=== PATIENT | female | born 1980 | race Caucasian/White ===

== ENCOUNTER 2022-10-01 18:13 | Emergency (ER) | payer MEDICAID ==
[~2022-10-01] VITALS: Ht 175.3 cm; Wt 50.8 kg
[2022-10-01] MEDS ORDERED: METOPROLOL (18:38)
[2022-10-01] MEDS ORDERED: MAGNESIUM SULFATE/D5W 100 ML IV SCH (20:00)
[2022-10-01] MEDS ORDERED: TRAM50TA2 PO (20:16)
[2022-10-01] MEDS ORDERED: HYDROCODONE/APAP 5-325MG TABLET ONE (20:21)
[2022-10-01 20:25] VITALS: BP 139/77; O2SAT 96
[2022-10-01] MEDS ORDERED: HYDROCODONE/APAP 5-325MG TABLET PO ONE (20:30)
== END 2022-10-01 20:26 | disposition home or self-care (01) ==
LOC: ER 18:18
DX: S90.111A Contusion of right great toe without damage to nail, initial encounter (principal); Z88.8 Allergy status to other drugs, medicaments and biological substances; Z79.899 Other long term (current) drug therapy; W22.8XXA Striking against or struck by other objects, initial encounter; Y93.89 Activity, other specified; Y92.89 Other specified places as the place of occurrence of the external cause; Y99.8 Other external cause status
CPT/HCPCS: 73630; A4663

== ENCOUNTER 2023-09-26 09:45 | Inpatient (IN) | payer MEDICAID, OTHER ==
[~2023-09-26] VITALS: Ht 170.2 cm; Wt 45.4 kg
[~2023-09-26 09:45] MED LIST: METOPROLOL; TRAM50TA2 PO
[2023-09-26 10:31] LABS: BASOPHILS % (AUTO) 0.4 % (0.0-2.0); EOSINOPHILS % (AUTO) 0.1 % (0.0-7.0); HEMOGLOBIN 12.7 g/dL (10.9-14.3); LYMPHOCYTES # (AUTO) 0.7 K/uL (0.8-4.8); LYMPHOCYTES % (AUTO) 27.1 % (20.5-51.5); MEAN CORPUSCULAR HEMOGLOBIN 32.1 uug (24.7-32.8); MEAN CORPUSCULAR HGB CONC 33 g/dL (32.3-35.6); MEAN CORPUSCULAR VOLUME 96.3 fL (75.5-95.3); MONOCYTES # (AUTO) 0.2 K/uL (0.1-1.30); MONOCYTES % (AUTO) 6.8 % (0.0-11.0); NEUTROPHILS # (AUTO) 1.8 K/uL (1.8-8.9); NEUTROPHILS % (AUTO) 65.6 % (38.5-71.5); PLATELET COUNT (AUTO) 104 K/uL (179-408); RED BLOOD CELL COUNT(AUTO) 3.95 MIL/uL (3.63-4.92); RED CELL DISTRIBUTION WIDTH 14.5 % (12.3-17.7); WHITE BLOOD COUNT (AUTO) 2.7 K/uL (3.8-11.8)
[2023-09-26 10:38] LABS: CALCIUM 8.3 mg/dL (8.5-10.1); CARBON DIOXIDE 28 mmol/L (21-32); CHLORIDE 91 mmol/L (98-107); CREATININE 0.5 mg/dL (0.6-1.3); GLUCOSE 112 mg/dL (74-106); POTASSIUM 3.3 mmol/L (3.5-5.1); SODIUM SERUM 132 mmol/L (136-145); UREA NITROGEN, BLOOD 5 mg/dL (7-18)
[2023-09-26 10:44] LABS: ALANINE AMINOTRANSFERASE 77 U/L (14-59); ALBUMIN 3.9 g/dL (3.4-5.0); ALKALINE PHOSPHATASE 116 U/L (50-136); ASPARTATE AMINOTRANSFERASE 155 U/L (15-37); BILIRUBIN,DIRECT 0.2 mg/dL (0.0-0.2); BILIRUBIN,TOTAL 0.6 mg/dL (0.2-1.0); LIPASE 304 U/L (16-77); TOTAL PROTEIN, SERUM 7.9 g/dL (6.4-8.2)
[2023-09-26] MEDS ORDERED: THIAMINE HCL 100 MG TABLET ONE (10:48)
[2023-09-26] MEDS ORDERED: CHLORDIAZEPOXIDE HCL 25 MG CAPSULE ONE (10:48)
[2023-09-26] MEDS ORDERED: HYDROMORPHONE 1 MG/1 ML DISP.SYRIN ONE (10:48)
[2023-09-26] MEDS ORDERED: ONDANSETRON 4 MG/2 ML VIAL ONE (10:48)
[2023-09-26 10:55] LABS: AMMONIA 17 umol/L (11-32)
[2023-09-26] MEDS: THIAMINE HCL 100 MG TABLET PO ONE (11:02)
[2023-09-26] MEDS: CHLORDIAZEPOXIDE HCL 25 MG CAPSULE PO ONE (11:02)
[2023-09-26] MEDS: ONDANSETRON 4 MG/2 ML VIAL IV ONE (11:03)
[2023-09-26] MEDS: IV NORMAL SALINE 1000 ML BAG IV ONE (11:03)
[2023-09-26] MEDS: HYDROMORPHONE 1 MG/1 ML DISP.SYRIN IV ONE (11:04)
[2023-09-26] MEDS ORDERED: POTASSIUM BICARBONATE/CIT AC 25 MEQ TABLET.EFF ONE (11:06)
[2023-09-26] MEDS: POTASSIUM BICARBONATE/CIT AC 25 MEQ TABLET.EFF PO ONE (11:07)
[2023-09-26 11:23] LABS: MAGNESIUM 1.5 mg/dL (1.8-2.4)
[2023-09-26 12:41] LABS: *BILIRUBIN,URIN NEGATIVE (NEGATIVE); *BLOOD, URINE NEGATIVE (NEGATIVE); *CLARITY,URINE CLEAR (CLEAR); *COLOR,URINE YELLOW (YELLOW); *KETONES,URINE 1+ (NEGATIVE); *PROTEIN,URINE NEGATIVE (NEGATIVE); *UROBILINOGEN,URINE 0.2 E.U./dl (NORMAL); LEUKOCYTE ESTERASE ,URINE NEGATIVE (NEGATIVE); NITRITE, URINE NEGATIVE (NEGATIVE); PH,URINE 6.5 (5.0-8.0); UGLUCOSE NEGATIVE (NEGATIVE)
[2023-09-26 12:47] LABS: *URINE HCG, QUAL NEGATIVE (NEGATIVE)
[2023-09-26] MEDS ORDERED: CHOLECALCIFEROL 1,000 UNIT TABLET ONE (12:51)
[2023-09-26] MEDS ORDERED: MAGNESIUM SULFATE/D5W 300 ML ONE (12:52)
[2023-09-26] MEDS: MAGNESIUM SULFATE/D5W 100 ML IV SCH (12:54)
[2023-09-26] MEDS: CHOLECALCIFEROL 1,000 UNIT TABLET PO SCH (12:54)
[2023-09-26 12:58] LABS: BACTERIA,URINE NONE SEEN /HPF (NONE SEEN); RBC,URINE NONE SEEN /HPF (0-3); SQUAMOUS EPITHELIAL CELL,UR FEW /HPF (NONE SEEN); WBC,URINE 0-3 /HPF (0-3)
[2023-09-26] MEDS ORDERED: REMEDY ESSENTIAL ZINC PASTE 113 GM TP PRN (14:00)
[2023-09-26] MEDS ORDERED: LORAZEPAM 2 MG/1 ML VIAL IV PRN (14:00)
[2023-09-26] MEDS ORDERED: MAGNESIUM HYDROXIDE 30 ML LIQUID UDC PO PRN (14:00)
[2023-09-26] MEDS: IV NS 1000 ML 1,000 ML IV PRN (15:13)
[2023-09-26] MEDS: THIAMINE HCL INJ 100 MG in IV DEXTROSE 5% 50 ML IV SCH (15:13)
[2023-09-26 16:16] LABS: CALCIUM 7.6 mg/dL (8.5-10.1); CARBON DIOXIDE 28 mmol/L (21-32); CHLORIDE 91 mmol/L (98-107); CREATININE 0.4 mg/dL (0.6-1.3); GLUCOSE 125 mg/dL (74-106); SODIUM SERUM 132 mmol/L (136-145); UREA NITROGEN, BLOOD 3 mg/dL (7-18)
[2023-09-26] MEDS: CHLORDIAZEPOXIDE HCL 25 MG CAPSULE PO SCH (16:19)
[2023-09-26] MEDS: HYDROMORPHONE 1 MG/1 ML DISP.SYRIN IV PRN (17:36)
[2023-09-26 20:32] VITALS: BP 171/109; TEMP 97.8; O2SAT 99
[2023-09-26] MEDS: hydrALAZINE HCL 20 MG/1 ML VIAL IV PRN (21:51)
[2023-09-26] MEDS: ACETAMINOPHEN 325 MG TABLET PO PRN (21:57)
[2023-09-26] MEDS: ONDANSETRON 4 MG/2 ML VIAL IV PRN (22:57)
[2023-09-26 23:36] VITALS: BP 156/96; TEMP 97.8; O2SAT 99
[2023-09-27] MEDS: ZOLPIDEM 5 MG TABLET PO PRN (00:23)
[2023-09-27 04:00] VITALS: BP 156/103; TEMP 98.1; O2SAT 99
[2023-09-27 07:17] LABS: BASOPHILS % (AUTO) 0.6 % (0.0-2.0); EOSINOPHILS % (AUTO) 0.1 % (0.0-7.0); HEMOGLOBIN 11.4 g/dL (10.9-14.3); LYMPHOCYTES # (AUTO) 0.4 K/uL (0.8-4.8); LYMPHOCYTES % (AUTO) 16.5 % (20.5-51.5); MEAN CORPUSCULAR HEMOGLOBIN 32.4 uug (24.7-32.8); MEAN CORPUSCULAR HGB CONC 34 g/dL (32.3-35.6); MEAN CORPUSCULAR VOLUME 96.6 fL (75.5-95.3); MONOCYTES # (AUTO) 0.3 K/uL (0.1-1.30); MONOCYTES % (AUTO) 10.4 % (0.0-11.0); NEUTROPHILS # (AUTO) 1.8 K/uL (1.8-8.9); NEUTROPHILS % (AUTO) 72.4 % (38.5-71.5); PLATELET COUNT (AUTO) 69 K/uL (179-408); RED BLOOD CELL COUNT(AUTO) 3.52 MIL/uL (3.63-4.92); RED CELL DISTRIBUTION WIDTH 14.3 % (12.3-17.7); WHITE BLOOD COUNT (AUTO) 2.6 K/uL (3.8-11.8)
[2023-09-27 07:23] LABS: DIFFERENTIAL COMMENT 1
[2023-09-27 07:27] LABS: ALANINE AMINOTRANSFERASE 65 U/L (14-59); ALBUMIN 3.7 g/dL (3.4-5.0); ALKALINE PHOSPHATASE 109 U/L (50-136); ASPARTATE AMINOTRANSFERASE 108 U/L (15-37); BILIRUBIN,TOTAL 1.1 mg/dL (0.2-1.0); CALCIUM 7.8 mg/dL (8.5-10.1); CARBON DIOXIDE 24 mmol/L (21-32); CHLORIDE 90 mmol/L (98-107); CREATININE 0.4 mg/dL (0.6-1.3); GLUCOSE 117 mg/dL (74-106); MAGNESIUM 1.6 mg/dL (1.8-2.4); PHOSPHOROUS 2.9 mg/dL (2.5-4.9); POTASSIUM 2.9 mmol/L (3.5-5.1); SODIUM SERUM 129 mmol/L (136-145); TOTAL PROTEIN, SERUM 7.4 g/dL (6.4-8.2); UREA NITROGEN, BLOOD 4 mg/dL (7-18)
[2023-09-27 07:36] VITALS: BP 150/95; TEMP 98.6; O2SAT 96
[2023-09-27] MEDS: PANTOPRAZOLE SODIUM 40 MG VIAL IV SCH (09:18)
[2023-09-27 10:33] LABS: LYMPHOCYTES % (MANUAL) 15 % (20-40); MONOCYTES % (MANUAL) 8 % (2-10); NEUTROPHILS % (MANUAL) 77 % (42-75); PLATELET ESTIMATE DECREASED
[2023-09-27 10:34] LABS: ANISOCYTOSIS 1+; STOMATOCYTES 1+
[2023-09-27 11:56] VITALS: BP 135/91; TEMP 98.2; O2SAT 99
[2023-09-27] MEDS: MAGNESIUM SULFATE/D5W 100 ML IV SCH (13:50)
[2023-09-27] MEDS: POTASSIUM CHLORIDE 50 ML IV SCH (13:50)
[2023-09-27 15:24] VITALS: BP 136/98; TEMP 98.8; O2SAT 99
[2023-09-27 20:03] VITALS: BP 140/95; TEMP 99.3; O2SAT 99
[2023-09-28 00:03] VITALS: BP 137/101; TEMP 98.8; O2SAT 100
[2023-09-28 06:04] VITALS: BP 142/89; TEMP 98.1; O2SAT 98
[2023-09-28 06:48] LABS: BASOPHILS % (AUTO) 1.1 % (0.0-2.0); EOSINOPHILS % (AUTO) 2.3 % (0.0-7.0); HEMATOCRIT 33.5 % (31.2-41.9); LYMPHOCYTES # (AUTO) 0.8 K/uL (0.8-4.8); LYMPHOCYTES % (AUTO) 39.4 % (20.5-51.5); MEAN CORPUSCULAR HEMOGLOBIN 32.3 uug (24.7-32.8); MEAN CORPUSCULAR HGB CONC 33 g/dL (32.3-35.6); MEAN CORPUSCULAR VOLUME 98.9 fL (75.5-95.3); MONOCYTES # (AUTO) 0.2 K/uL (0.1-1.30); MONOCYTES % (AUTO) 9.3 % (0.0-11.0); NEUTROPHILS % (AUTO) 47.9 % (38.5-71.5); PLATELET COUNT (AUTO) 63 K/uL (179-408); RED BLOOD CELL COUNT(AUTO) 3.39 MIL/uL (3.63-4.92); RED CELL DISTRIBUTION WIDTH 14.1 % (12.3-17.7)
[2023-09-28 07:02] LABS: ALANINE AMINOTRANSFERASE 58 U/L (14-59); ALBUMIN 3.2 g/dL (3.4-5.0); ALKALINE PHOSPHATASE 98 U/L (50-136); ASPARTATE AMINOTRANSFERASE 131 U/L (15-37); BILIRUBIN,TOTAL 1.1 mg/dL (0.2-1.0); CALCIUM 8.4 mg/dL (8.5-10.1); CARBON DIOXIDE 26 mmol/L (21-32); CHLORIDE 103 mmol/L (98-107); CREATININE 0.5 mg/dL (0.6-1.3); GLUCOSE 101 mg/dL (74-106); LIPASE 56 U/L (16-77); PHOSPHOROUS 2.2 mg/dL (2.5-4.9); POTASSIUM 3.8 mmol/L (3.5-5.1); SODIUM SERUM 137 mmol/L (136-145); TOTAL PROTEIN, SERUM 6.6 g/dL (6.4-8.2); UREA NITROGEN, BLOOD 6 mg/dL (7-18)
[2023-09-28 07:09] LABS: DIFFERENTIAL COMMENT 1
[2023-09-28 07:43] LABS: EOSINOPHILS % (MANUAL) 2 % (0-8); LYMPHOCYTES % (MANUAL) 38 % (20-40); METAMYELOCYTES % 1 % (0-1); MONOCYTES % (MANUAL) 5 % (2-10); NEUTROPHILS % (MANUAL) 54 % (42-75); PLATELET ESTIMATE MARKED DECREASED
[2023-09-28 07:44] LABS: ANISOCYTOSIS 1+
[2023-09-28 07:46] VITALS: BP 146/97; TEMP 98.6; O2SAT 96
[2023-09-28 11:38] VITALS: BP 133/100; TEMP 98.4; O2SAT 97
[2023-09-28 15:19] VITALS: BP 139/97; TEMP 97.6; O2SAT 99
[2023-09-28] MEDS: NEUTRA PHOS PACKET PO ONE (16:59)
[2023-09-28 22:32] VITALS: BP 146/100; TEMP 98.5; O2SAT 100
[2023-09-29 06:00] VITALS: BP 164/107; TEMP 97.9; O2SAT 98
[2023-09-29] MEDS: PANTOPRAZOLE SODIUM 40 MG TABLET.DR PO SCH (06:25)
[2023-09-29 07:09] LABS: BASOPHILS % (AUTO) 0.7 % (0.0-2.0); EOSINOPHILS # (AUTO) 0.1 K/uL (0.0-0.7); EOSINOPHILS % (AUTO) 2.3 % (0.0-7.0); HEMATOCRIT 32.7 % (31.2-41.9); HEMOGLOBIN 10.9 g/dL (10.9-14.3); LYMPHOCYTES # (AUTO) 0.7 K/uL (0.8-4.8); LYMPHOCYTES % (AUTO) 31.3 % (20.5-51.5); MEAN CORPUSCULAR HEMOGLOBIN 32.9 uug (24.7-32.8); MEAN CORPUSCULAR HGB CONC 33 g/dL (32.3-35.6); MEAN CORPUSCULAR VOLUME 98.9 fL (75.5-95.3); MONOCYTES # (AUTO) 0.3 K/uL (0.1-1.30); MONOCYTES % (AUTO) 11.6 % (0.0-11.0); NEUTROPHILS # (AUTO) 1.3 K/uL (1.8-8.9); NEUTROPHILS % (AUTO) 54.1 % (38.5-71.5); PLATELET COUNT (AUTO) 66 K/uL (179-408); RED BLOOD CELL COUNT(AUTO) 3.31 MIL/uL (3.63-4.92); RED CELL DISTRIBUTION WIDTH 14.3 % (12.3-17.7); WHITE BLOOD COUNT (AUTO) 2.4 K/uL (3.8-11.8)
[2023-09-29 07:23] LABS: DIFFERENTIAL COMMENT 1
[2023-09-29 07:27] LABS: ALANINE AMINOTRANSFERASE 60 U/L (14-59); ALBUMIN 3.1 g/dL (3.4-5.0); ALKALINE PHOSPHATASE 99 U/L (50-136); ASPARTATE AMINOTRANSFERASE 102 U/L (15-37); BILIRUBIN,TOTAL 0.6 mg/dL (0.2-1.0); CALCIUM 8.7 mg/dL (8.5-10.1); CARBON DIOXIDE 25 mmol/L (21-32); CHLORIDE 103 mmol/L (98-107); CREATININE 0.4 mg/dL (0.6-1.3); GLUCOSE 124 mg/dL (74-106); MAGNESIUM 1.5 mg/dL (1.8-2.4); POTASSIUM 3.3 mmol/L (3.5-5.1); SODIUM SERUM 138 mmol/L (136-145); TOTAL PROTEIN, SERUM 6.4 g/dL (6.4-8.2); UREA NITROGEN, BLOOD 4 mg/dL (7-18)
[2023-09-29] MEDS: FOLIC ACID 1 MG TABLET PO SCH (08:36)
[2023-09-29] MEDS: MULTIVITAMINS,THERAPEUTIC TABLET PO SCH (08:37)
[2023-09-29] MEDS: MAGNESIUM OXIDE 400 MG TABLET PO ONE (08:37)
[2023-09-29] MEDS: POTASSIUM CHLORIDE 20 MEQ TAB.PRT.SR PO ONE (08:37)
[2023-09-29] MEDS: AMLODIPINE 5 MG TABLET PO SCH (08:38)
[2023-09-29 11:12] VITALS: BP 129/93; TEMP 98.2; O2SAT 96
[2023-09-29] MEDS: THIAMINE HCL 100 MG TABLET PO SCH (11:54)
[2023-09-29 13:46] LABS: EOSINOPHILS % (MANUAL) 2 % (0-8); LYMPHOCYTES % (MANUAL) 29 % (20-40); MONOCYTES % (MANUAL) 11 % (2-10); NEUTROPHILS % (MANUAL) 58 % (42-75)
[2023-09-29] MEDS ORDERED: THIA100T13 PO (14:31)
[2023-09-29] MEDS ORDERED: FOLI1TAB94 PO (14:31)
[2023-09-29] MEDS ORDERED: FAMO10TA41 PO (14:31)
[2023-09-29] MEDS ORDERED: AMLO-212 PO (14:31)
[2023-09-29] MEDS ORDERED: MULT-24 PO (14:31)
[2023-09-29] MEDS ORDERED: CHLO25CA22 PO (14:31)
== END 2023-09-29 15:00 | disposition home or self-care (01) | DRG 280 ==
LOC: ER 09:45 → MEDSURG3 13:40 → TELE3 16:12 → MEDSURG3 09-28 09:22
PROVIDERS: ADMIT Nurse Practitioner Acute Care
DX: K70.10 Alcoholic hepatitis without ascites (principal); K70.0 Alcoholic fatty liver; K85.20 Alcohol induced acute pancreatitis without necrosis or infection; D61.818 Other pancytopenia; E43 Unspecified severe protein-calorie malnutrition; D69.6 Thrombocytopenia, unspecified; E87.1 Hypo-osmolality and hyponatremia; E88.09 Other disorders of plasma-protein metabolism, not elsewhere classified; R62.7 Adult failure to thrive; D75.89 Other specified diseases of blood and blood-forming organs; D72.819 Decreased white blood cell count, unspecified; E83.42 Hypomagnesemia; E87.6 Hypokalemia; Y90.8 Blood alcohol level of 240 mg/100 ml or more; I10 Essential (primary) hypertension; E86.1 Hypovolemia; Z68.1 Body mass index [BMI] 19.9 or less, adult; R94.31 Abnormal electrocardiogram [ECG] [EKG]; Z88.8 Allergy status to other drugs, medicaments and biological substances; Z87.19 Personal history of other diseases of the digestive system; F10.239 Alcohol dependence with withdrawal, unspecified
CPT/HCPCS: 36415; 70030-TC; 83690; 83735; 84100; 84484; 84703; 85025; 93005; A4663; G0378; G0480; J0360; J1170; J2405; J2470; J3411; J3475; J3480; J7040

== ENCOUNTER 2024-09-26 14:11 | Inpatient (IN) | payer OTHER ==
[~2024-09-26] VITALS: Ht 170.2 cm; Wt 52.2 kg
[~2024-09-26 14:11] MED LIST changes: +AMLO-212 PO; +CHLO25CA22 PO; +FAMO10TA41 PO; +FOLI1TAB94 PO; -METOPROLOL; +MULT-24 PO; +THIA100T13 PO; -TRAM50TA2 PO
[2024-09-26 14:39] LABS: PLATELET COUNT (AUTO) 58 K/uL (179-408); RED BLOOD CELL COUNT(AUTO) 4.00 MIL/uL (3.63-4.92); RED CELL DISTRIBUTION WIDTH 19.4 % (12.3-17.7); WHITE BLOOD COUNT (AUTO) 2.2 K/uL (3.8-11.8)
[2024-09-26 14:48] LABS: CREATININE 0.5 mg/dL (0.6-1.3); SODIUM SERUM 141 mmol/L (136-145); UREA NITROGEN, BLOOD 4 mg/dL (7-18)
[2024-09-26 14:53] LABS: ETHANOL 121.0 MG/DL (0-10)
[2024-09-26 14:54] LABS: ASPARTATE AMINOTRANSFERASE 186 U/L (15-37); TOTAL PROTEIN, SERUM 8.5 g/dL (6.4-8.2)
[2024-09-26] MEDS ORDERED: ONDANSETRON 4 MG/2 ML VIAL ONE ×2 (15:32→18:26)
[2024-09-26] MEDS: ONDANSETRON 4 MG/2 ML VIAL IV ONE ×2 (15:36→18:28)
[2024-09-26 16:39] LABS: *BILIRUBIN,URIN NEGATIVE (NEGATIVE); *BLOOD, URINE NEGATIVE (NEGATIVE); *CLARITY,URINE CLEAR (CLEAR); *COLOR,URINE YELLOW (YELLOW); *KETONES,URINE NEGATIVE (NEGATIVE); *PROTEIN,URINE TRACE (NEGATIVE); *UROBILINOGEN,URINE 0.2 E.U./dl (NORMAL); LEUKOCYTE ESTERASE ,URINE NEGATIVE (NEGATIVE); NITRITE, URINE NEGATIVE (NEGATIVE); UGLUCOSE NEGATIVE (NEGATIVE)
[2024-09-26 16:46] LABS: *AMPHETAMINE, URINE NEGATIVE (NEGATIVE); *BARBITURATE, URINE NEGATIVE (NEGATIVE); *BENZODIAZEPINE, URINE NEGATIVE (NEGATIVE); *CANNABINOID, URINE NEGATIVE (NEGATIVE); *COCCAINE, URINE NEGATIVE (NEGATIVE); *OPIATE, URINE NEGATIVE (NEGATIVE); *PHENCYCLIDINE SCREEN,URINE NEGATIVE (NEGATIVE); FENTANYL, URINE NEGATIVE (NEGATIVE)
[2024-09-26 16:57] LABS: SQUAMOUS EPITHELIAL CELL,UR FEW /HPF (NONE SEEN)
[2024-09-26] MEDS ORDERED: PHENOBARBITAL SODIUM 130 MG/1 ML DISP.SYRIN ONE (17:20)
[2024-09-26] MEDS: PHENOBARBITAL SODIUM 130 MG/1 ML DISP.SYRIN IV ONE (17:24)
[2024-09-26] MEDS ORDERED: HYDROMORPHONE 1 MG/1 ML DISP.SYRIN ONE (18:26)
[2024-09-26] MEDS: HYDROMORPHONE 1 MG/1 ML DISP.SYRIN IV ONE (18:28)
[2024-09-26 19:00] VITALS: BP 129/83
[2024-09-26] MEDS ORDERED: METO100T14 PO (19:18)
[2024-09-26 20:00] VITALS: BP 153/105; TEMP 98.1; O2SAT 97
[2024-09-26] MEDS ORDERED: CHLORDIAZEPOXIDE HCL 25 MG CAPSULE ONE (20:27)
[2024-09-26] MEDS ORDERED: ACETAMINOPHEN 325 MG TABLET ONE (20:27)
[2024-09-26] MEDS ORDERED: LORAZEPAM 2 MG/1 ML VIAL ONE ×2 (20:28→22:02)
[2024-09-26] MEDS ORDERED: THIAMINE HCL 200 MG/2 ML VIAL ONE (20:35)
[2024-09-26] MEDS: LORAZEPAM 2 MG/1 ML VIAL IV PRN (20:44)
[2024-09-26] MEDS: CHLORDIAZEPOXIDE HCL 25 MG CAPSULE PO SCH (20:46)
[2024-09-26] MEDS: ACETAMINOPHEN 325 MG TABLET PO PRN (20:51)
[2024-09-26] MEDS: THIAMINE HCL INJ 100 MG in IV DEXTROSE 5% 50 ML IV SCH (20:55)
[2024-09-26] MEDS: IV NS 1000 ML 1,000 ML IV PRN (20:59)
[2024-09-26 21:00] VITALS: BP 173/114; O2SAT 96
[2024-09-26 22:00] VITALS: BP 173/120; O2SAT 97
[2024-09-26 23:00] VITALS: BP 150/114; O2SAT 97
[2024-09-27] VITALS (11 sets, daily range): BP systolic 132–164; BP diastolic 90–110; TEMP 97.7–98.6; O2SAT 96–99
[2024-09-27] MEDS ORDERED: CHLORDIAZEPOXIDE HCL 25 MG CAPSULE ONE (05:56)
[2024-09-27 06:01] LABS: CREATININE 0.4 mg/dL (0.6-1.3); SODIUM SERUM 136 mmol/L (136-145); UREA NITROGEN, BLOOD 5 mg/dL (7-18)
[2024-09-27 06:02] LABS: PLATELET COUNT (AUTO) 50 K/uL (179-408); RED BLOOD CELL COUNT(AUTO) 3.60 MIL/uL (3.63-4.92); RED CELL DISTRIBUTION WIDTH 19.8 % (12.3-17.7); WHITE BLOOD COUNT (AUTO) 2.6 K/uL (3.8-11.8)
[2024-09-27 07:48] LABS: LYMPHOCYTES % (MANUAL) 30 % (20-40); MONOCYTES % (MANUAL) 7 % (2-10); NEUTROPHILS % (MANUAL) 63 % (42-75)
[2024-09-27 07:49] LABS: PLATELET ESTIMATE DECREASED
[2024-09-27] MEDS: FOLIC ACID 1 MG TABLET PO SCH (08:35)
[2024-09-27] MEDS ORDERED: METO50TA16 PO (09:44)
[2024-09-27] MEDS: MAGNESIUM SULFATE/D5W 100 ML IV SCH (10:13)
[2024-09-27] MEDS: THIAMINE HCL 100 MG TABLET PO SCH (12:18)
[2024-09-28 05:48] VITALS: BP 151/98; TEMP 98.6; O2SAT 95
[2024-09-28 07:55] LABS: PLATELET COUNT (AUTO) 53 K/uL (179-408); RED BLOOD CELL COUNT(AUTO) 3.65 MIL/uL (3.63-4.92); RED CELL DISTRIBUTION WIDTH 19.7 % (12.3-17.7); WHITE BLOOD COUNT (AUTO) 2.6 K/uL (3.8-11.8)
[2024-09-28 08:11] LABS: CREATININE 0.4 mg/dL (0.6-1.3); SODIUM SERUM 136 mmol/L (136-145); UREA NITROGEN, BLOOD 3 mg/dL (7-18)
[2024-09-28] MEDS: AMLODIPINE 5 MG TABLET PO STA (08:17)
[2024-09-28] MEDS: ONDANSETRON 4 MG/2 ML VIAL IV PRN (08:18)
[2024-09-28 10:54] VITALS: BP 162/102; TEMP 98.2; O2SAT 94
[2024-09-28] MEDS: HYDROCHLOROTHIAZIDE 25 MG TABLET PO SCH (10:59)
[2024-09-28] MEDS: POTASSIUM CHLORIDE 20 MEQ TAB.PRT.SR PO ONE (12:12)
[2024-09-28] MEDS: ENSURE ENLIVE (VAN) 240 ML LIQUID PO SCH (14:09)
[2024-09-28 15:33] VITALS: BP 141/101; TEMP 98.8; O2SAT 98
[2024-09-28] MEDS: ENSURE WITH FIBER 237 ML LIQUID (CHOCOLATE) PO SCH (16:48)
[2024-09-28 19:23] VITALS: BP 139/105; TEMP 98.4; O2SAT 98
[2024-09-28 23:39] VITALS: BP 147/106; TEMP 98.3; O2SAT 98
[2024-09-29 05:44] VITALS: BP 141/99; TEMP 98.1; O2SAT 97
[2024-09-29 07:35] VITALS: BP 147/109; TEMP 97.9; O2SAT 97
[2024-09-29] MEDS: AMLODIPINE 5 MG TABLET PO SCH (08:23)
[2024-09-29 11:08] VITALS: BP 146/102; TEMP 97.8; O2SAT 100
[2024-09-29 14:06] LABS: PLATELET COUNT (AUTO) 72 K/uL (179-408); RED BLOOD CELL COUNT(AUTO) 3.93 MIL/uL (3.63-4.92); RED CELL DISTRIBUTION WIDTH 19.6 % (12.3-17.7); WHITE BLOOD COUNT (AUTO) 3.7 K/uL (3.8-11.8)
[2024-09-29] MEDS: PROPRANOLOL HCL 10 MG TABLET PO SCH (14:07)
[2024-09-29 14:14] LABS: CREATININE 0.8 mg/dL (0.6-1.3); SODIUM SERUM 139.0 mmol/L (136-145); UREA NITROGEN, BLOOD 6.0 mg/dL (7-18)
[2024-09-29 15:34] VITALS: BP 152/106; TEMP 98; O2SAT 96
[2024-09-29 22:05] VITALS: BP 148/109; TEMP 98.1; O2SAT 98
[2024-09-30 00:40] VITALS: BP 140/101; TEMP 98.4; O2SAT 99
[2024-09-30 06:00] VITALS: BP 145/102; TEMP 98.5; O2SAT 98
[2024-09-30 07:35] VITALS: BP 129/87; TEMP 97.9; O2SAT 98
[2024-09-30] MEDS ORDERED: FOLI1TAB94 PO (10:11)
[2024-09-30] MEDS ORDERED: HYDR25TA4 PO (10:11)
[2024-09-30] MEDS ORDERED: AMLO-212 PO (10:11)
[2024-09-30] MEDS ORDERED: THIA100T13 PO (10:11)
[2024-09-30] MEDS ORDERED: PROP10TA68 PO (10:11)
[2024-09-30 11:39] VITALS: BP 132/106; TEMP 97.9; O2SAT 99
== END 2024-09-30 15:05 | disposition home or self-care (01) | DRG 199 ==
LOC: ER 14:11 → UNDOADMIN 20:07 → ICU 20:07 → ICU IN 20:08 → TELE3 09-27 05:54
PROVIDERS: ADMIT Nurse Practitioner Acute Care; ATTEND Nurse Practitioner Acute Care
DX: I16.0 Hypertensive urgency (principal); F10.231 Alcohol dependence with withdrawal delirium; D69.6 Thrombocytopenia, unspecified; K70.0 Alcoholic fatty liver; D75.89 Other specified diseases of blood and blood-forming organs; K70.10 Alcoholic hepatitis without ascites; Y90.6 Blood alcohol level of 120-199 mg/100 ml; D72.819 Decreased white blood cell count, unspecified; Z87.19 Personal history of other diseases of the digestive system
CPT/HCPCS: 36415; 70030-TC; 70450; 83735; 84100; 84443; 84484; 85025; 85730; G0378; G0480; J0360; J1171; J2060; J2405; J2560; J3411; J3475; J7040